=== PATIENT | male | born 1950 | race Caucasian/White ===

== ENCOUNTER 2021-03-03 23:00 | Observation (INO) ==
[2021-03-03] MEDS ORDERED: Morphine Sulfate 2 MG/ML SYRINGE IVP ONE (23:25)
[2021-03-03] MEDS ORDERED: Pantoprazole 40 MG VIAL IVP ONE (23:25)
[2021-03-03] MEDS ORDERED: 0.9 % Sodium Chloride 1,000 ML IVC ONE (23:25)
[2021-03-03] MEDS ORDERED: Ondansetron 4 MG/2 ML VIAL IVP ONE (23:25)
[2021-03-03] MEDS ORDERED: Isovue-370 500 ML BOTTLE IVP ONE (23:26)
[2021-03-03] MEDS ORDERED: Pantoprazole 40 MG in 0.9 % Sodium Chloride Mini Bag 100 ML IVC SCH (23:30)
[2021-03-04 00:03] LABS: Basophils % 0.2 %; Hematocrit 31.2 % (37.5-50.1); Immature Granulocytes % 1.4 % (0-4); Lymphocytes % 7.2 %; Mean Corpuscular HGB Conc 32.1 g/dL (31.6-35.5); Mean Corpuscular Hemoglobin 31.3 pg (28.0-33.3); Mean Corpuscular Volume 97.8 fL (83.0-100.0); Mean Platelet Volume 10.6 fL (9.4-12.4); Monocytes % 7.2 %; Neutrophils # 11.1 K/mcL (1.6-8.9); Platelet Count 270 K/mcL (140-400); Red Blood Count 3.19 M/mcL (4.19-5.50); Red Cell Distribution Width 13.6 % (11.5-14.5); White Blood Count 13.3 K/mcL (4.3-11.1)
[2021-03-04 00:12] LABS: INR 1.9; Prothrombin Time 21.8 Seconds (9.4-12.1)
[2021-03-04 00:15] LABS: Activated Partial Thrombo Time 25.7 Seconds (26.0-36.0)
[2021-03-04 00:22] LABS: Alanine Aminotransferase 19 Units/L (7-52); Albumin 2.8 g/dL (3.5-5.7); Albumin/Globulin Ratio 1.2 (1.1-2.2); Alkaline Phosphatase 71 Units/L (34-104); Aspartate Amino Transferase 24 Units/L (13-39); BUN/Creatinine Ratio 63 (6-26); Bilirubin,Total 0.3 mg/dL (0.3-1.0); Blood Urea Nitrogen 85 mg/dL (8-23); Calcium 9.4 mg/dL (8.6-10.3); Carbon Dioxide 27 mEq/L (23-29); Chloride 99 mEq/L (98-107); Globulin 2.3 g/dL (2.4-3.5); Glucose 181 mg/dL (70-105); Lipase 29 Units/L (11-82); Magnesium 1.9 mg/dL (1.6-2.6); Osmolality,Calculated 314 (280-300); Potassium 5.4 mEq/L (3.5-5.1); Sodium 137 mEq/L (136-145); Total Protein 5.1 g/dL (6.4-8.9); Troponin I 0.12 ng/mL (< 0.04); eGFR For African Americans > 60 (> 60); eGFR For Non-African Americans 52 (> 60)
[2021-03-04] MEDS ORDERED: Ipratropium/Albuterol Neb 3 ML IH ONE (02:07)
[2021-03-04] MEDS ORDERED: 0.9 % Sodium Chloride 1,000 ML IVC SCH ×2 (02:15→06:00)
[2021-03-04] MEDS ORDERED: methylPREDNISolone 125 MG/2 ML VIAL IVP ONE (02:33)
[2021-03-04] MEDS ORDERED: Piperacillin/Tazobactam 3.375 GM in Water for inj. (sterile) 20 ML IVP ONE (03:00)
[2021-03-04 03:40] LABS: Adenovirus Not Detected (Not Detect); Bordetella Pertussis Not Detected (Not Detect); Chlamydophila pneumoniae Not Detected (Not Detect); Coronavirus 229E Not Detected (Not Detect); Coronavirus HKU1 Not Detected (Not Detect); Coronavirus NL63 Not Detected (Not Detect); Coronavirus OC43 Not Detected (Not Detect); Human Metapneumovirus Not Detected (Not Detect); Human Rhinovirus/Enterovirus Not Detected (Not Detect); Influenza A Subtype 2009 H1 Not Detected (Not Detect); Influenza B Not Detected (Not Detect); Mycoplasma pneumoniae Not Detected (Not Detect); Parainfluenza Virus 1 Not Detected (Not Detect); Parainfluenza Virus 2 Not Detected (Not Detect); Parainfluenza Virus 3 Not Detected (Not Detect); Parainfluenza Virus 4 Not Detected (Not Detect); Respiratory Syncytial Virus Not Detected (Not Detect); SARS-CoV-2 Not Detected (Not Detect)
[2021-03-04] MEDS ORDERED: Ondansetron 4 MG/2 ML VIAL IVP PRN (05:52)
[2021-03-04] MEDS ORDERED: Naloxone 0.4 MG/ML INJ IVP PRN (05:52)
[2021-03-04] MEDS ORDERED: Pantoprazole 40 MG VIAL IVP SCH (06:00)
[2021-03-04] MEDS ORDERED: EPINEPHrine 1 MG/ML VIAL IV ONE (07:00)
[2021-03-04] MEDS ORDERED: *HR* EPINEPHrine 1 MG/10 ML SYRINGE IVP ONE (07:00)
[2021-03-04] MEDS ORDERED: Lidocaine -MPF 4% 5 ML AMPUL ONE (08:18)
[2021-03-04] MEDS ORDERED: *HR* Rocuronium Bromide 50 MG/5 ML VIAL ONE (08:18)
[2021-03-04] MEDS ORDERED: *HR* Propofol 200 MG/20 ML VIAL IVP ONE ×2 (08:18)
[2021-03-04] MEDS ORDERED: *HR* FentaNYL (PF) 100 MCG/2 ML VIAL ONE (08:18)
[2021-03-04] MEDS ORDERED: Ondansetron 4 MG/2 ML VIAL ONE (08:18)
[2021-03-04] MEDS ORDERED: Lidocaine -MPF 2% 2 ML VIAL ONE (08:18)
[2021-03-04] MEDS ORDERED: *HR* Succinylcholine 200 MG/10 ML VIAL IVP ONE (08:18)
== END 2021-03-04 07:01 | disposition expired ==
LOC: EMEROOARM 23:00 → 2ANU 23:00
PROVIDERS: ADMIT Internal Medicine; ATTEND Internal Medicine